=== PATIENT | female | born 1945 | race Caucasian/White ===

== ENCOUNTER 2024-04-27 11:02 | Inpatient (IN) | payer MEDICAID ==
[~2024-04-27] VITALS: Ht 163 cm; Wt 70.0 kg
[2024-04-27 11:13] VITALS: BP 133/64
[2024-04-27 11:42] LABS: BASO # 0.1 10*3/uL (0.0-0.1); BASO % 0.6 % (0.0-1.0); EOS # 0.1 10*3/uL (0.0-0.4); EOS % 1.8 % (1.0-4.0); HEMATOCRIT 42.3 % (37.0-47.0); MEAN CELL VOLUME 100.5 fl (81.0-99.0); MEAN CORPUSCULAR HGB 31.4 pg (27.0-31.0); MEAN CORPUSCULAR HGB CONC 31.2 g/dl (33.0-37.0); MEAN PLATELET VOLUME 8.4 fl (9.6-12.3); MONO # 0.5 10*3/uL (0.1-1.0); MONO % 6.5 % (3.0-9.0); NEUT # 5.4 10*3/uL (2.3-7.9); NEUT % 70.1 % (47.0-73.0); PLATELET COUNT AUTOMATED 345 10*3/uL (130-400); RED BLOOD COUNT 4.21 10*6/uL (4.10-5.10); RED CELL DISTRI WIDTH 13.3 % (0-14.5); WHITE BLOOD COUNT 7.7 10*3/uL (4.8-10.8)
[2024-04-27] MEDS ORDERED: VENLAFAXINE225 MG PO (11:53)
[2024-04-27] MEDS ORDERED: LEVOTHYROXINE25 MCG PO (11:54)
[2024-04-27] MEDS ORDERED: ATENOLOL25 MG PO (11:54)
[2024-04-27] MEDS ORDERED: GLIMEPIRIDE2 MG PO (11:55)
[2024-04-27] MEDS ORDERED: OXYBUTYNIN5 MG PO (11:56)
[2024-04-27] MEDS ORDERED: MIRTAZAPINE15 M2 PO (11:56)
[2024-04-27] MEDS ORDERED: LIPITOR20 MG PO (11:57)
[2024-04-27] MEDS ORDERED: OLANZAPINE5 MG PO (11:58)
[2024-04-27] MEDS ORDERED: ASPIRIN ADULT L81 M1 PO (11:58)
[2024-04-27] MEDS ORDERED: ALIGN4 M1 PO (11:59)
[2024-04-27] MEDS ORDERED: ATIVAN0.5 MG PO (12:02)
[2024-04-27 12:04] LABS: ALKALINE PHOSPHATASE 231 U/L (46-116); BUN 18 mg/dl (9-23); CHLORIDE 108 mmol/L (98-107); CPK 27 U/L (34-171); POTASSIUM 4.3 mmol/L (3.4-5.1); SGPT/ALT 56 U/L (5-49); TOTAL PROTEIN 7.4 gm/dL (6.0-8.0)
[2024-04-27] MEDS ORDERED: SODIUM CHLORIDE 0.9% 500 ML IV ONE (12:10)
[2024-04-27 12:11] LABS: ETHYL ALCOHOL < 3.0 mg/dl (<3)
[2024-04-27 15:13] LABS: BILIRUBIN Negative (Negative); BLOOD Negative (Negative); CLARITY Clear (Clear); COLOR Yellow (Yellow); GLUCOSE Negative (Negative); KETONE Negative (Negative); LEUKO ESTERASE Negative (Negative); NITRITE Negative (Negative); PH 7.5 (4.5-8.0); SPECIFIC GRAVITY 1.015 (1.001-1.030); UROBILINOGEN 0.2 E.U./dl (0.0-1.0)
[2024-04-27 15:20] LABS: URINE AMPHETAMINES Negative (1000ng/ml); URINE BARBITURATES Negative (200ng/ml); URINE BENZODIAZEPINES Negative (200ng/ml); URINE CANNABINOIDS (THC) Negative (50ng/ml); URINE COCAINE Negative (300ng/ml); URINE METHADONE Negative (300ng/ml); URINE OPIATES Negative (300ng/ml); URINE PHENCYCLIDINE Negative (25ng/ml)
[2024-04-27] MEDS ORDERED: Oscal,Oyster S500 MG PO (15:57)
[2024-04-27] MEDS ORDERED: NYSTATIN1000000 UN T (15:58)
[2024-04-27] MEDS ORDERED: OXYCODONE5 M1 PO (15:59)
[2024-04-27] MEDS ORDERED: TYLENOL325 M2 PO (16:00)
[2024-04-27] MEDS ORDERED: MIRALAX17 GM PO (16:00)
[2024-04-27] MEDS ORDERED: VITAMIN D350 MCG PO (16:01)
[2024-04-27] MEDS ORDERED: LORazepam 1 MG TAB PO PRN (16:05)
[2024-04-27] MEDS ORDERED: LORazepam 2 MG/ML VIAL IM PRN (16:05)
[2024-04-27] MEDS ORDERED: Ziprasidone Mesylate 20 MG VIAL IM PRN (16:10)
[2024-04-27] MEDS ORDERED: ACETAMINOPHEN 325 MG TAB PO PRN (16:20)
[2024-04-27] MEDS ORDERED: Magnesium Hydroxide 30 ML UDC PO PRN (16:20)
[2024-04-27] MEDS ORDERED: MG-AL HYDROXIDE/SIMETICONE 30 ML UDC PO PRN (16:20)
[2024-04-27] MEDS ORDERED: Menthol/Zinc Oxide 4 GM THIN T PRN (16:35)
[2024-04-27] MEDS ORDERED: OXYCODONE HCL (IR) 5 MG TAB PO PRN (17:50)
[2024-04-27 20:00] VITALS: BP 132/65
[2024-04-27] MEDS ORDERED: Duloxetine Hydrochloride 30 MG CAP PO SCH (21:00)
[2024-04-27] MEDS ORDERED: ATORVASTATIN CALCIUM 20 MG TAB PO SCH (21:00)
[2024-04-27] MEDS ORDERED: Oxybutynin Chloride 5 MG TAB PO SCH (21:00)
[2024-04-27] MEDS ORDERED: BREXPIPRAZOLE 1 MG TABLET PO SCH (21:00)
[2024-04-28] MEDS ORDERED: Levothyroxine Sodium 25 MCG TAB PO SCH (06:00)
[2024-04-28 06:38] LABS: ALKALINE PHOSPHATASE 193 U/L (46-116); BUN 17 mg/dl (9-23); CHLORIDE 110 mmol/L (98-107); CHOLESTEROL 117 mg/dL (<200); LDL CHOLESTEROL 56 mg/dL (9-159); POTASSIUM 4.2 mmol/L (3.4-5.1); SGPT/ALT 53 U/L (5-49); TOTAL PROTEIN 6.2 gm/dL (6.0-8.0); TRIGLYCERIDES 109 mg/dl (<150)
[2024-04-28 06:58] LABS: BASO % 0.7 % (0.0-1.0); EOS # 0.2 10*3/uL (0.0-0.4); EOS % 3.1 % (1.0-4.0); HEMATOCRIT 36.3 % (37.0-47.0); MEAN CELL VOLUME 98.6 fl (81.0-99.0); MEAN CORPUSCULAR HGB 32.1 pg (27.0-31.0); MEAN CORPUSCULAR HGB CONC 32.5 g/dl (33.0-37.0); MEAN PLATELET VOLUME 8.5 fl (9.6-12.3); MONO # 0.5 10*3/uL (0.1-1.0); MONO % 9.4 % (3.0-9.0); NEUT # 2.7 10*3/uL (2.3-7.9); NEUT % 50.1 % (47.0-73.0); PLATELET COUNT AUTOMATED 308 10*3/uL (130-400); RED BLOOD COUNT 3.68 10*6/uL (4.10-5.10); RED CELL DISTRI WIDTH 13.5 % (0-14.5); WHITE BLOOD COUNT 5.5 10*3/uL (4.8-10.8)
[2024-04-28 07:30] LABS: VITAMIN D, 25-HYDROXY 61.4 ng/mL (30-100)
[2024-04-28 08:14] VITALS: BP 118/40
[2024-04-28] MEDS ORDERED: ATENOLOL 25 MG TAB PO SCH (09:00)
[2024-04-28] MEDS ORDERED: Polyethylene Glycol 3350 17 GM PACKET PO SCH (09:00)
[2024-04-28] MEDS ORDERED: LORazepam 0.5 MG TAB PO SCH (09:00)
[2024-04-28] MEDS ORDERED: Cholecalciferol 2,000 UNIT TABLET (50 MCG) PO SCH (09:00)
[2024-04-28] MEDS ORDERED: ASPIRIN, CHEWABLE 81 MG TAB PO SCH (09:00)
[2024-04-28] MEDS ORDERED: Venlafaxine Hydrochloride 75 MG CAP PO SCH (10:00)
[2024-04-28] MEDS ORDERED: NYSTATIN 15 GM BOT T SCH (10:00)
[2024-04-28] MEDS ORDERED: Lactobacillus Acidophilus/LA 1 TAB TAB PO SCH (10:00)
[2024-04-28 20:00] VITALS: BP 130/76
[2024-04-29 08:39] VITALS: BP 121/50
[2024-04-29] MEDS ORDERED: Rivastigmine Tartrate 4.6 MG/24 HR PATCH T SCH (09:00)
[2024-04-29 20:00] VITALS: BP 138/52
[2024-04-29] MEDS ORDERED: Duloxetine Hydrochloride 60 MG CAP PO SCH (21:00)
[2024-04-29] MEDS ORDERED: clonAZEPAM 0.5 MG TAB PO SCH (21:00)
[2024-04-30 08:00] VITALS: BP 122/69
[2024-04-30] MEDS ORDERED: Rivastigmine Tartrate 9.5 MG/24 HR PATCH T SCH (09:00)
[2024-04-30] MEDS ORDERED: Venlafaxine Hydrochloride 37.5 MG CAP PO SCH (09:00)
[2024-04-30] MEDS ORDERED: Venlafaxine Hydrochloride 75 MG CAP PO SCH (09:00)
[2024-04-30 20:00] VITALS: BP 122/64
[2024-05-01 08:26] VITALS: BP 128/51
[2024-05-01 20:00] VITALS: BP 136/58
[2024-05-02 07:46] VITALS: BP 129/51
[2024-05-02] MEDS ORDERED: RIVASTIGMINE 13.3 MG/24 HR TDM T SCH (09:00)
[2024-05-02 20:00] VITALS: BP 114/43
[2024-05-03 07:07] LABS: BASO % 0.4 % (0.0-1.0); EOS # 0.2 10*3/uL (0.0-0.4); EOS % 2.6 % (1.0-4.0); HEMATOCRIT 38.1 % (37.0-47.0); MEAN CELL VOLUME 98.2 fl (81.0-99.0); MEAN CORPUSCULAR HGB 31.4 pg (27.0-31.0); MEAN PLATELET VOLUME 8.8 fl (9.6-12.3); MONO # 0.4 10*3/uL (0.1-1.0); MONO % 7.7 % (3.0-9.0); NEUT # 3.4 10*3/uL (2.3-7.9); NEUT % 59.8 % (47.0-73.0); PLATELET COUNT AUTOMATED 287 10*3/uL (130-400); RED BLOOD COUNT 3.88 10*6/uL (4.10-5.10); RED CELL DISTRI WIDTH 13.4 % (0-14.5); WHITE BLOOD COUNT 5.7 10*3/uL (4.8-10.8)
[2024-05-03 07:16] LABS: ALKALINE PHOSPHATASE 183 U/L (46-116); BUN 17 mg/dl (9-23); CHLORIDE 108 mmol/L (98-107); SGPT/ALT 37 U/L (5-49); TOTAL PROTEIN 6.5 gm/dL (6.0-8.0)
[2024-05-03 08:00] VITALS: BP 121/39
[2024-05-03] MEDS ORDERED: clonAZEPAM 1 MG TAB PO SCH (13:00)
[2024-05-03 20:00] VITALS: BP 132/71
[2024-05-04 08:00] VITALS: BP 112/60
[2024-05-04] MEDS ORDERED: Duloxetine Hydrochloride 30 MG CAP PO SCH (09:30)
[2024-05-04] MEDS ORDERED: clonAZEPAM 0.5 MG TAB PO SCH (09:34)
[2024-05-04 18:00] VITALS: BP 142/62
[2024-05-04] MEDS ORDERED: clonAZEPAM 1 MG TAB PO SCH (21:00)
[2024-05-05] MEDS ORDERED: BISACODYL 5 MG TAB PO PRN (07:25)
[2024-05-05 08:04] VITALS: BP 117/68
[2024-05-05] MEDS ORDERED: LORazepam 1 MG TAB PO PRN (14:50)
[2024-05-05] MEDS ORDERED: LORazepam 2 MG/ML VIAL IM PRN (14:50)
[2024-05-05 20:00] VITALS: BP 118/42
[2024-05-06 07:58] VITALS: BP 111/60
[2024-05-06] MEDS ORDERED: clonAZEPAM 1 MG TAB PO SCH (13:00)
[2024-05-06 20:00] VITALS: BP 120/49
[2024-05-07 08:00] VITALS: BP 115/69
[2024-05-07 20:00] VITALS: BP 125/56
[2024-05-08 08:00] VITALS: BP 127/48
[2024-05-08] MEDS ORDERED: OLANZAPINE 2.5 MG TAB PO SCH (09:00)
[2024-05-08 11:14] VITALS: BP 135/72
[2024-05-08 20:00] VITALS: BP 104/76
[2024-05-09 08:00] VITALS: BP 118/47
[2024-05-09] MEDS ORDERED: clonAZEPAM 1 MG TAB PO SCH (13:00)
[2024-05-09 20:00] VITALS: BP 113/48
[2024-05-10 07:59] VITALS: BP 112/68
[2024-05-10] MEDS ORDERED: RIVASTIGMINE1 EAC2 T (10:03)
[2024-05-10] MEDS ORDERED: ZYPREXA2.5 MG PO (10:03)
[2024-05-10] MEDS ORDERED: DULOXETINE HCL60 MG PO (10:03)
[2024-05-10] MEDS ORDERED: DULOXETINE HCL30 MG PO (10:03)
[2024-05-10] MEDS ORDERED: CLONAZEPAM1 MG PO (10:03)
== END 2024-05-10 16:49 | disposition home or self-care (01) | DRG 753 ==
LOC: ED 11:02 → 3N 16:52
PROVIDERS: Counselor Professional; Internal Medicine; ADMIT Psychiatry & Neurology Psychiatry; ATTEND Psychiatry & Neurology Psychiatry
PROC: GZHZZZZ Group Psychotherapy (ICD-10-PCS; principal; 2024-04-28)
PROC: GZ56ZZZ Individual Psychotherapy, Supportive (ICD-10-PCS; 2024-04-28)
DX: F31.81 Bipolar II disorder (principal); E44.0 Moderate protein-calorie malnutrition; E87.20 Acidosis, unspecified; G30.9 Alzheimer's disease, unspecified; D64.9 Anemia, unspecified; I10 Essential (primary) hypertension; R74.01 Elevation of levels of liver transaminase levels; D75.89 Other specified diseases of blood and blood-forming organs; E87.8 Other disorders of electrolyte and fluid balance, not elsewhere classified; E78.5 Hyperlipidemia, unspecified; E11.65 Type 2 diabetes mellitus with hyperglycemia; R32 Unspecified urinary incontinence; F02.84 Dementia in other diseases classified elsewhere, unspecified severity, with anxiety; E03.9 Hypothyroidism, unspecified; Z91.018 Allergy to other foods; Z79.899 Other long term (current) drug therapy; Z79.01 Long term (current) use of anticoagulants; Z79.2 Long term (current) use of antibiotics; Z98.42 Cataract extraction status, left eye; Z98.41 Cataract extraction status, right eye; Z68.26 Body mass index [BMI] 26.0-26.9, adult; Z90.49 Acquired absence of other specified parts of digestive tract; Z82.49 Family history of ischemic heart disease and other diseases of the circulatory system